=== PATIENT | female | born 1935 | race Caucasian/White ===

== ENCOUNTER 2021-03-03 12:00 | Inpatient (IN) ==
[2021-03-03] MEDS ORDERED: Naloxone 0.4 MG/ML INJ IVP PRN (12:34)
[2021-03-03 14:09] LABS: Hematocrit 26.5 % (35.3-44.9); Hemoglobin 7.8 g/dL (11.5-15.4); Mean Corpuscular HGB Conc 29.4 g/dL (31.6-35.5); Mean Corpuscular Hemoglobin 24.4 pg (28.0-33.3); Mean Corpuscular Volume 82.8 fL (83.0-100.0); Mean Platelet Volume 8.9 fL (9.4-12.4); Platelet Count 329 K/mcL (140-400); Red Cell Distribution Width 14.6 % (11.5-14.5); White Blood Count 7.7 K/mcL (4.3-11.1)
[2021-03-03 14:21] LABS: BUN/Creatinine Ratio 24 (6-26); Blood Urea Nitrogen 22 mg/dL (8-23); Calcium 8.6 mg/dL (8.6-10.3); Carbon Dioxide 27 mEq/L (23-29); Chloride 103 mEq/L (98-107); Glucose 102 mg/dL (70-105); Osmolality,Calculated 288 (280-300); Potassium 4.3 mEq/L (3.5-5.1); Sodium 137 mEq/L (136-145); eGFR For African Americans > 60 (> 60); eGFR For Non-African Americans 60 (> 60)
[2021-03-03] MEDS ORDERED: *HR* OxyCODONE/APAP 5/325 TABLET PO PRN (16:10)
[2021-03-03] MEDS: rOPINIRole 1 MG TABLET PO SCH (20:25)
[2021-03-04] MEDS: amLODIPine 5 MG TABLET PO SCH (08:54)
[2021-03-04] MEDS: Furosemide 20 MG TABLET PO SCH (08:54)
[2021-03-04] MEDS: rOPINIRole 1 MG TABLET PO SCH ×2 (08:55→20:01)
[2021-03-04] MEDS: Cholecalciferol (D-3) 1,000 UNIT (25MCG) TABLET PO SCH (08:55)
[2021-03-04] MEDS: Aspirin Enteric Coated 81 MG Tablet PO SCH (10:16)
[2021-03-04] MEDS: *HR* Rivaroxaban 10 MG TABLET PO SCH (15:16)
[2021-03-05] MEDS: Cholecalciferol (D-3) 1,000 UNIT (25MCG) TABLET PO SCH (07:59)
[2021-03-05] MEDS: Furosemide 20 MG TABLET PO SCH (08:00)
[2021-03-05] MEDS: rOPINIRole 1 MG TABLET PO SCH ×2 (08:00→19:49)
[2021-03-05] MEDS: Aspirin Enteric Coated 81 MG Tablet PO SCH (08:00)
[2021-03-05] MEDS: amLODIPine 5 MG TABLET PO SCH (08:00)
[2021-03-05] MEDS: *HR* Rivaroxaban 10 MG TABLET PO SCH (17:08)
[2021-03-06 02:32] VITALS: TEMP 97.7
[2021-03-06 07:28] VITALS: BP 130/66; PULSE 54; O2SAT 90
[2021-03-06] MEDS: Cholecalciferol (D-3) 1,000 UNIT (25MCG) TABLET PO SCH (08:02)
[2021-03-06] MEDS: amLODIPine 5 MG TABLET PO SCH (08:02)
[2021-03-06] MEDS: Furosemide 20 MG TABLET PO SCH (08:02)
[2021-03-06] MEDS: Aspirin Enteric Coated 81 MG Tablet PO SCH (08:03)
[2021-03-06] MEDS: rOPINIRole 1 MG TABLET PO SCH (08:03)
== END 2021-03-06 11:32 | disposition home or self-care (01) | DRG 309 ==
LOC: 3BNU
PROVIDERS: ADMIT Internal Medicine Clinical Cardiac Electrophysiology; ATTEND Internal Medicine Clinical Cardiac Electrophysiology

== ENCOUNTER 2021-04-08 17:28 | Inpatient (IN) ==
[2021-04-08] MEDS ORDERED: Pantoprazole 80 MG in 0.9 % Sodium Chloride 50 ML IVPB ONE (17:41)
[2021-04-08 18:43] LABS: Basophils % 0.2 %; Eosinophils # 0.1 K/mcL (0.0-0.6); Eosinophils % 1.3 %; Hematocrit 21.7 % (35.3-44.9); Hemoglobin 6.2 g/dL (11.5-15.4); Immature Granulocytes % 0.2 % (0-4); Lymphocytes % 23.1 %; Mean Corpuscular HGB Conc 28.6 g/dL (31.6-35.5); Mean Corpuscular Hemoglobin 21.9 pg (28.0-33.3); Mean Corpuscular Volume 76.7 fL (83.0-100.0); Mean Platelet Volume 9.8 fL (9.4-12.4); Monocytes # 0.8 K/mcL (0.0-1.3); Monocytes % 8.7 %; Neutrophils # 5.8 K/mcL (1.6-8.9); Nucleated Red Blood Cells 0.5 /100 WBC (0); Platelet Count 424 K/mcL (140-400); Red Blood Count 2.83 M/mcL (3.82-4.97); Segmented Neutrophils % 66.5 %; White Blood Count 8.7 K/mcL (4.3-11.1)
[2021-04-08 18:55] LABS: Alanine Aminotransferase 7 Units/L (7-52); Albumin 3.4 g/dL (3.5-5.7); Albumin/Globulin Ratio 1.1 (1.1-2.2); Alkaline Phosphatase 75 Units/L (34-104); Aspartate Amino Transferase 15 Units/L (13-39); BUN/Creatinine Ratio 19 (6-26); Bilirubin,Total 0.3 mg/dL (0.3-1.0); Blood Urea Nitrogen 20 mg/dL (8-23); Calcium 9.1 mg/dL (8.6-10.3); Carbon Dioxide 28 mEq/L (23-29); Chloride 102 mEq/L (98-107); Globulin 3.1 g/dL (2.4-3.5); Glucose 122 mg/dL (70-105); Lipase 10 Units/L (11-82); Osmolality,Calculated 290 (280-300); Potassium 3.8 mEq/L (3.5-5.1); Sodium 138 mEq/L (136-145); Total Protein 6.5 g/dL (6.4-8.9); Troponin I < 0.03 ng/mL (< 0.04); eGFR For African Americans > 60 (> 60); eGFR For Non-African Americans 50 (> 60)
[2021-04-08 19:00] LABS: INR 1.8
[2021-04-08 19:03] LABS: Activated Partial Thrombo Time 35.1 Seconds (26.0-36.0)
[2021-04-08 19:08] LABS: Hypochromasia Present (Not Present)
[2021-04-08 19:09] LABS: Microcytosis Present (Not Present)
[2021-04-08] MEDS ORDERED: 0.9 % Sodium Chloride 250 ML ONE (20:12)
[2021-04-08] MEDS ORDERED: rOPINIRole 1 MG TABLET PO ONE (20:32)
[2021-04-08] MEDS ORDERED: Acetaminophen 325 MG TABLET PO PRN (21:45)
[2021-04-08] MEDS ORDERED: Naloxone 0.4 MG/ML INJ IVP PRN (21:45)
[2021-04-08] MEDS ORDERED: Ondansetron 4 MG/2 ML VIAL IVP PRN (21:45)
[2021-04-09 00:57] LABS: Basophils % 0.3 %; Eosinophils # 0.1 K/mcL (0.0-0.6); Eosinophils % 1.5 %; Hematocrit 23.1 % (35.3-44.9); Immature Granulocytes % 0.3 % (0-4); Lymphocytes # 2.3 K/mcL (0.6-4.6); Lymphocytes % 29.4 %; Mean Corpuscular HGB Conc 30.3 g/dL (31.6-35.5); Mean Corpuscular Hemoglobin 23.7 pg (28.0-33.3); Mean Corpuscular Volume 78.3 fL (83.0-100.0); Mean Platelet Volume 9.2 fL (9.4-12.4); Monocytes # 0.7 K/mcL (0.0-1.3); Monocytes % 8.9 %; Neutrophils # 4.6 K/mcL (1.6-8.9); Nucleated Red Blood Cells 0.4 /100 WBC (0); Platelet Count 331 K/mcL (140-400); Red Blood Count 2.95 M/mcL (3.82-4.97); Red Cell Distribution Width 17.5 % (11.5-14.5); Segmented Neutrophils % 59.6 %; White Blood Count 7.8 K/mcL (4.3-11.1)
[2021-04-09] MEDS: Pantoprazole 40 MG VIAL IVP SCH ×2 (05:13→17:41)
[2021-04-09 08:37] LABS: Basophils % 0.3 %; Eosinophils # 0.1 K/mcL (0.0-0.6); Eosinophils % 1.9 %; Hematocrit 23.4 % (35.3-44.9); Immature Granulocytes % 0.3 % (0-4); Lymphocytes # 1.6 K/mcL (0.6-4.6); Lymphocytes % 22.6 %; Mean Corpuscular HGB Conc 29.9 g/dL (31.6-35.5); Mean Corpuscular Hemoglobin 23.7 pg (28.0-33.3); Mean Corpuscular Volume 79.3 fL (83.0-100.0); Monocytes # 0.6 K/mcL (0.0-1.3); Monocytes % 7.8 %; Neutrophils # 4.8 K/mcL (1.6-8.9); Nucleated Red Blood Cells 0.4 /100 WBC (0); Platelet Count 322 K/mcL (140-400); Red Blood Count 2.95 M/mcL (3.82-4.97); Red Cell Distribution Width 17.2 % (11.5-14.5); Segmented Neutrophils % 67.1 %; White Blood Count 7.2 K/mcL (4.3-11.1)
[2021-04-09 08:45] LABS: INR 1.5; Prothrombin Time 16.6 Seconds (9.4-12.1)
[2021-04-09 08:59] LABS: BUN/Creatinine Ratio 23 (6-26); Blood Urea Nitrogen 19 mg/dL (8-23); Calcium 8.5 mg/dL (8.6-10.3); Carbon Dioxide 28 mEq/L (23-29); Chloride 105 mEq/L (98-107); Glucose 85 mg/dL (70-105); Iron 13 mcg/dL (50-170); Magnesium 1.8 mg/dL (1.6-2.6); Osmolality,Calculated 290 (280-300); Potassium 3.9 mEq/L (3.5-5.1); Sodium 139 mEq/L (136-145); eGFR For African Americans > 60 (> 60); eGFR For Non-African Americans > 60 (> 60)
[2021-04-09 09:11] LABS: Thyroid Stimulating Hormone 1.956 mcIU/mL (0.340-5.600)
[2021-04-09 09:17] LABS: Ferritin 9 ng/mL (10-120)
[2021-04-09] MEDS ORDERED: SODIUM CHLORIDE/NAHCO3/KCL/PEG 4,000 ML SOLN.RECON PO ONE (17:00)
[2021-04-09 22:14] LABS: Hematocrit 28.3 % (35.3-44.9); Hemoglobin 8.4 g/dL (11.5-15.4)
[2021-04-09] MEDS ORDERED: rOPINIRole 1 MG TABLET PO ONE (22:34)
[2021-04-10 06:16] LABS: BUN/Creatinine Ratio 18 (6-26); Blood Urea Nitrogen 13 mg/dL (8-23); Calcium 8.4 mg/dL (8.6-10.3); Carbon Dioxide 25 mEq/L (23-29); Chloride 103 mEq/L (98-107); Glucose 71 mg/dL (70-105); Magnesium 1.7 mg/dL (1.6-2.6); Osmolality,Calculated 281 (280-300); Potassium 3.9 mEq/L (3.5-5.1); Sodium 136 mEq/L (136-145); eGFR For African Americans > 60 (> 60); eGFR For Non-African Americans > 60 (> 60)
[2021-04-10] MEDS: Pantoprazole 40 MG VIAL IVP SCH ×2 (06:19→17:06)
[2021-04-10 06:34] LABS: Hematocrit 25.7 % (35.3-44.9); Hemoglobin 7.5 g/dL (11.5-15.4); Mean Corpuscular HGB Conc 29.2 g/dL (31.6-35.5); Mean Corpuscular Hemoglobin 23.4 pg (28.0-33.3); Mean Corpuscular Volume 80.1 fL (83.0-100.0); Platelet Count 330 K/mcL (140-400); Red Blood Count 3.21 M/mcL (3.82-4.97); Red Cell Distribution Width 17.2 % (11.5-14.5); White Blood Count 10.1 K/mcL (4.3-11.1)
[2021-04-10 06:35] LABS: Basophils % 0.3 %; Eosinophils # 0.2 K/mcL (0.0-0.6); Eosinophils % 2.1 %; Immature Granulocytes % 0.3 % (0-4); Lymphocytes # 2.6 K/mcL (0.6-4.6); Lymphocytes % 25.4 %; Mean Platelet Volume 9.6 fL (9.4-12.4); Monocytes # 0.9 K/mcL (0.0-1.3); Monocytes % 8.4 %; Neutrophils # 6.4 K/mcL (1.6-8.9); Segmented Neutrophils % 63.5 %
[2021-04-10] MEDS ORDERED: Lidocaine -MPF 2% 5 ML VIAL ONE (08:55)
[2021-04-10] MEDS ORDERED: *HR* Propofol 200 MG/20 ML VIAL IVP ONE ×2 (08:55→09:16)
[2021-04-10] MEDS: amLODIPine 5 MG TABLET PO SCH (10:05)
[2021-04-10] MEDS: Furosemide 20 MG TABLET PO SCH (10:06)
[2021-04-10] MEDS: rOPINIRole 1 MG TABLET PO SCH ×2 (11:48→21:34)
[2021-04-11] MEDS: Pantoprazole 40 MG VIAL IVP SCH (05:10)
[2021-04-11 05:58] LABS: Basophils % 0.3 %; Eosinophils # 0.2 K/mcL (0.0-0.6); Eosinophils % 2.5 %; Hematocrit 25.4 % (35.3-44.9); Hemoglobin 7.4 g/dL (11.5-15.4); Immature Granulocytes % 0.3 % (0-4); Lymphocytes # 1.8 K/mcL (0.6-4.6); Lymphocytes % 23.7 %; Mean Corpuscular HGB Conc 29.1 g/dL (31.6-35.5); Mean Corpuscular Hemoglobin 23.3 pg (28.0-33.3); Mean Corpuscular Volume 79.9 fL (83.0-100.0); Mean Platelet Volume 9.3 fL (9.4-12.4); Monocytes # 0.6 K/mcL (0.0-1.3); Monocytes % 7.6 %; Neutrophils # 4.9 K/mcL (1.6-8.9); Nucleated Red Blood Cells 0.3 /100 WBC (0); Platelet Count 348 K/mcL (140-400); Red Blood Count 3.18 M/mcL (3.82-4.97); Red Cell Distribution Width 17.5 % (11.5-14.5); Segmented Neutrophils % 65.6 %; White Blood Count 7.5 K/mcL (4.3-11.1)
[2021-04-11 06:13] LABS: BUN/Creatinine Ratio 12 (6-26); Blood Urea Nitrogen 10 mg/dL (8-23); Calcium 8.3 mg/dL (8.6-10.3); Carbon Dioxide 29 mEq/L (23-29); Chloride 102 mEq/L (98-107); Glucose 101 mg/dL (70-105); Osmolality,Calculated 283 (280-300); Potassium 3.5 mEq/L (3.5-5.1); Sodium 137 mEq/L (136-145); eGFR For African Americans > 60 (> 60); eGFR For Non-African Americans > 60 (> 60)
[2021-04-11 07:31] VITALS: O2SAT 95
[2021-04-11] MEDS: rOPINIRole 1 MG TABLET PO SCH (09:17)
[2021-04-11] MEDS: amLODIPine 5 MG TABLET PO SCH (09:18)
[2021-04-11] MEDS: Furosemide 20 MG TABLET PO SCH (09:18)
[2021-04-11 10:40] VITALS: BP 147/74; PULSE 70; TEMP 97.8
[2021-04-15 03:55] LABS: % Iron Saturation 4 % (15-50); Transferrin 250 mg/dL (203-362)
== END 2021-04-11 16:54 | disposition home health service (06) | DRG 378 ==
LOC: EMEROOARM 17:28 → 3BNU 17:28 → SUATTDRO 20:55 → 3BNU 21:33
PROVIDERS: ADMIT Student in an Organized Health Care Education/Training Program; ATTEND Hospitalist